=== PATIENT | female | born 2000 | race Caucasian/White ===

== ENCOUNTER 2021-07-21 06:54 | Emergency (ER) | payer OTHER ==
[~2021-07-21 06:54] MED LIST: MOTRIN600 MG PO
== END 2021-07-21 08:05 | disposition home or self-care (01) ==
LOC: FER 06:54
DX: Z48.00 Encounter for change or removal of nonsurgical wound dressing (principal); Z88.2 Allergy status to sulfonamides
CPT/HCPCS: 99282